=== PATIENT | male | born 1995 | race African-American/Black ===

== ENCOUNTER 2023-05-19 17:27 | Emergency (ER) | payer OTHER ==
[~2023-05-19] VITALS: Ht 182.9 cm; Wt 100.0 kg
[2023-05-19 17:45] VITALS: BP 141/87; RESP 18; TEMP 98.3; O2SAT 99
[2023-05-19 17:46] VITALS: PULSE 101
[2023-05-19] MEDS ORDERED: LIDOCAINE HCL 1% 20ML VIAL (Pyxis) INJ INFIL ONE (18:00)
[2023-05-19] MEDS ORDERED: CEFTRIAXONE SODIUM 500 MG/VIAL IM ONE (18:00)
[2023-05-19] MEDS ORDERED: DOXYCYCLINE HYCLATE 100MG CAPSULE PO ONE (18:00)
[2023-05-19 18:24] LABS: CLARITY URINE CLEAR (CLEAR); COLOR URINE YELLOW (YELLOW); GLUCOSE URINE NEGATIVE (NEGATIVE); KETONES URINE NEGATIVE (NEGATIVE); LEUKOCYTE ESTERASE URINE NEGATIVE (NEGATIVE); NITRITE URINE NEGATIVE (NEGATIVE); OCCULT BLOOD URINE NEGATIVE (NEGATIVE); PH URINE 6.5 (4.5-8.0); PROTEIN URINE NEGATIVE (NEGATIVE)
[2023-05-19] MEDS ORDERED: CLOT45CR62 VG (20:02)
[2023-05-19] MEDS ORDERED: DOXY100C5 MT (20:02)
[2023-05-19] MEDS ORDERED: LIDOCAINE HCL 1% 20ML VIAL (Pyxis) INJ INFIL SCH (20:15)
[2023-05-19] MEDS ORDERED: CEFTRIAXONE SODIUM 500 MG/VIAL IM SCH (20:15)
[2023-05-19] MEDS ORDERED: DOXYCYCLINE HYCLATE 100MG CAPSULE PO SCH (20:15)
[2023-05-22 08:07] LABS: CHLAMYDIA TRACHOMATIS NAA Negative (Negative); NEISSERIA GONORRHOEAE NAA Negative (Negative)
== END 2023-05-19 20:25 | disposition home or self-care (01) ==
LOC: ER 17:27
DX: R21 Rash and other nonspecific skin eruption (principal); J45.909 Unspecified asthma, uncomplicated; Z91.040 Latex allergy status
CPT/HCPCS: 99283; 87491; 87591; 81003; 96372; J0696; J3490